=== PATIENT | male | born 1995 | race Caucasian/White ===

== ENCOUNTER 2020-09-30 01:47 | Emergency (ER) | payer OTHER ==
[~2020-09-30] VITALS: Ht 162.6 cm; Wt 80.0 kg
[2020-09-30 04:00] VITALS: BP 132/85
== END 2020-09-30 05:27 | disposition home or self-care (01) ==
LOC: EMS 01:50
DX: S83.91XA Sprain of unspecified site of right knee, initial encounter (principal); F17.210 Nicotine dependence, cigarettes, uncomplicated; X50.9XXA Other and unspecified overexertion or strenuous movements or postures, initial encounter; Y93.39 Activity, other involving climbing, rappelling and jumping off; Y92.89 Other specified places as the place of occurrence of the external cause; Y99.8 Other external cause status
CPT/HCPCS: 99284; 73562-TC; 73610-TC; Z7502